=== PATIENT | female | born 1975 | race Caucasian/White ===

== ENCOUNTER 2017-05-09 11:57 | Emergency (ER) | payer OTHER ==
[~2017-05-09] VITALS: Ht 162.6 cm; Wt 73.0 kg
[~2017-05-09 11:57] MED LIST: ATV/1 PO; CARI350T28 PO; CETI10TA84 PO; CHN/1 PO; CYM/30 PO; FLUT0.15 NAE; FLUT1INH3 INH; FRCT/ PO; Gabapentin PO; MONT1TAB3 PO; MULT-506 PO; ONDA4TAB46 PO; PRLSR20 PO; QUET200T2 PO; ROPI1TAB PO; SUMA50TA15 PO; TRAZ100T29 PO; VNTHFA/IN INH; oxycodone PO
[2017-05-09 12:07] VITALS: TEMP 36.8; Ht 162.6 cm; Wt 73.0 kg
[2017-05-09] MEDS ORDERED: OXYC-164 PO (12:20)
[2017-05-09] MEDS ORDERED: NRN600 PO (12:20)
[2017-05-09] MEDS ORDERED: KETOROLAC TROMETHAMINE 60 MG/2 ML VIAL IM STA (12:36)
--- NOTE | 2017-05-09 13:43 | DIAGNOSTIC IMAGING REPORT ---
LUMBAR SPINE 5 VIEWS CLINICAL HISTORY: Fall. Low back pain. FINDINGS: 5 views of the lumbar spine are obtained. No prior studies are available for comparison at the time of dictation. The skeletal structures are well mineralized. There is no radiographic evidence of fracture or malalignment. Vertebral body height and alignment are maintained. There is straightening of the lumbar lordosis with reversal centered at L3. Small anterior osteophytes are seen throughout. The transverse and spinous processes are intact. There is no evidence of spondylolysis. The intervertebral disc spaces are well-maintained. The visualized bony pelvis appears intact. There is a nonobstructed abdominal bowel gas pattern. There is mild but age advanced atherosclerotic calcification of the abdominal aorta. IMPRESSION: No acute bony abnormality is seen involving the lumbosacral spine. Electronically signed by: Jorge Alberto Arias M.D. 05/09/2017 1:41 PM Dictated Date/Time: 05/09/2017 1:40 PM
[2017-05-09] MEDS ORDERED: OXYCODONE HCL IR 5 MG TAB (IMMEDIATE RELEASE) PO STA (14:27)
--- NOTE | 2017-05-09 14:28 | EMERGENCY ROOM VISIT NOTE ---
ED Visit Note First contact with patient: 12:26 CHIEF COMPLAINT: Low back injury this morning HISTORY OF PRESENT ILLNESS: Patient is a 42-year-old white female who presents the emergency department for evaluation of left-sided low back pain after she slipped down a roughly 5 wooden steps, falling and striking her left low back. She did not strike her head or lose consciousness. She complains of pain in the left low back. It is worse with any attempts at movement. It does not radiate to the buttocks or legs. No numbness, tickling or weakness into the lower extremities or bowel or bladder incontinence. She denies any rib pain breath. She has a history of chronic neck and back pain. She is on narcotics chronically. She did take Tylenol and oxycodone 10 mg orally today. She tried to go to work, but could not tolerate the discomfort. She rates her back pain a 10/10. REVIEW OF SYSTEMS: Review of systems as per HPI. All other systems reviewed were negative. At least 6 systems reviewed. PMH: Electronic medical records are reviewed and summarized as above/below. See Problem List. SOCIAL HISTORY: Patient lives at home. Employed as an aide at a personal shelter. PHYSICAL EXAM: Vital Signs: Reviewed Nurse's notes. CONSTITUTIONAL: Patient is a tearful, uncomfortable-appearing 42-year-old white female who is awake and alert and laying on the gurney in moderate distress due to her complaint. There is significant discomfort with position changes. CARDIOVASCULAR: Regular rate and rhythm. RESPIRATORY: Breath sounds equal and clear to auscultation without wheezes, rales, or rhonchi heard. Full and equal chest expansion without accessory muscle use or retractions. ABDOMEN: Bowel sounds are present. Abdomen is soft, nontender and nondistended. INTEGUMENTARY: No lesions or rash, normal skin turgor. LYMPH: No lymphadenopathy. SPINE: Examination of the patient's back notes some superficial abrasion in the left low back region. No ecchymosis or significant soft tissue swelling. No erythema, increased warmth or induration. Patient has midline discomfort to palpation over the low lumbar spine, primarily on the left, extending into the left paraspinous musculature. There is no pain over the SI joint or the sciatic notch. She has increased pain with range of motion including rotation and flexion. EXTREMITIES: Leg lengths are symmetrical. Negative logroll bilaterally. Normal strength including dorsi-flexion and plantar flexion of the great toes and ankles and flexion and extension of the knees and flexion of the hips. Negative bilateral straight leg raise testing. Lower extremity DTRs are equal and symmetrical bilaterally. Distal pulses are easily palpable. Sensation light touch is intact over the lower extremities bilaterally. EMERGENCY DEPARTMENT COURSE: The patient was seen and assessed as above. Her old records were reviewed. She was medicated with Toradol 60 mg IM. Lumbar spine x-rays were obtained. There is no evidence for acute fracture or bony abnormality. The patient was given oxycodone 10 mg orally prior to discharge. 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 Differential diagnoses entertained included compression fracture, transverse process fracture, lumbar contusion, coccygeal fracture versus contusion, muscle strain, among others. The patient was ambulatory out of the emergency department. She rated her pain an 8/10 at discharge. Medication reconciliation: I attest that I have personally reviewed the patient' s current medication list. Blood pressure screening : Patient was found to have normal blood pressure on screening and does not require follow-up. Patient was reviewed in the [facility] Prescription Drug Monitoring Program, and she regularly receives controlled substance prescriptions from her primary care provider, she has 53 controlled substance prescriptions in the last 12 months. LUMBAR SPINE 5 VIEWS CLINICAL HISTORY: Fall. Low back pain. FINDINGS: 5 views of the lumbar spine are obtained. No prior studies are available for comparison at the time of dictation. The skeletal structures are well mineralized. There is no radiographic evidence of fracture or malalignment. Vertebral body height and alignment are maintained. There is straightening of the lumbar lordosis with reversal centered at L3. Small anterior osteophytes are seen throughout. The transverse and spinous processes are intact. There is no evidence of spondylolysis. The intervertebral disc spaces are well-maintained. The visualized bony pelvis appears intact. There is a nonobstructed abdominal bowel gas pattern. There is mild but age advanced atherosclerotic calcification of the abdominal aorta. IMPRESSION: No acute bony abnormality is seen involving the lumbosacral spine. Problem List Medical Problems: (1) Anxiety Disorder, Unspecified Status: Chronic (2) Chronic Obstructive Pulmonary Disease, Unspecified Status: Chronic (3) Chronic pain syndrome Status: Chronic (4) Depression Status: Chronic (5) Gastro-Esophageal Reflux Disease Without Esophagitis Status: Chronic (6) Migraine Status: Chronic (7) Restless Legs Syndrome Status: Chronic Surgical Problems: (1) History of appendectomy Status: Resolved Current/Historical Medications Scheduled Carisoprodol (Soma), 350 MG PO TID Duloxetine HCl (Cymbalta), 1 CAP PO DAILY Fluticasone Furoate (Inhalatio (Arnuity Ellipta), 1 PUFF INH DAILY Fluticasone Propionate (Nasal) (Flonase Allergy Relief), 2 SPRAYS ELLY DAILY Gabapentin (Gabapentin), 600 MG PO TID Montelukast Sodium (Singulair), 1 TAB PO DAILY Quetiapine Fumarate Xr (Seroquel Xr), 200 MG PO HS Ropinirole (Requip), 1 MG PO HS Sumatriptan Succinate (Imitrex), 50 MG PO PRN Trazodone Hcl (Trazodone), 100 MG PO HS Varenicline (Chantix), 1 TAB PO BID Scheduled PRN Acetamin/Butalbital/Caffeine (Fioricet), 1 TAB PO Q6H PRN for PRN Albuterol Hfa (Ventolin Hfa), 2-4 PUFFS INH Q6H PRN for PRN Lorazepam (Ativan), 1 MG PO DAILY PRN for prn Oxycodone Hcl (Oxycodone Hcl), 10 MG PO Q6 PRN for Pain Allergies Coded Allergies: Promethazine (Verified Allergy, Unknown, ., 03/15/11) Vital Signs Date Time Temp Pulse Resp B/P (MAP) Pulse Ox O2 Delivery O2 Flow Rate FiO2 05/09/17 14:48 72 14 98/80 95 Room Air 05/09/17 13:39 73 18 121/75 98 Room Air 05/09/17 12:07 36.8 93 18 133/84 97 Room Air Medications Administered Medications (Trade) Dose Ordered Sig/Kelly Route Start Time Stop Time Status Last Admin Dose Admin Ketorolac Tromethamine (Toradol Inj) 60 mg NOW STAT IM 05/09/17 12:36 05/09/17 12:38 DC 05/09/17 12:59 60 MG Oxycodone HCl (Roxicodone Immediate Rel Tab) 10 mg NOW STAT PO 05/09/17 14:27 05/09/17 14:28 DC 05/09/17 14:47 10 MG Departure Information Impression Primary Impression: Lumbar contusion Referrals Tariq Bañuelos D.O. (PCP) Patient Instructions My [facility] [address] Additional Instructions DO NOT drive, drink alcohol, operate machinery, or perform dangerous activities today. You were given medications in the ER that can affect your ability to safely function or operate a vehicle. Continue your pain medications as prescribed. Ibuprofen(Motrin, Advil) may be used for fever or pain. Use 600mg every six hours as needed. Take with food. Avoid using more than 2400mg in a 24 hour period. Do not use 2400mg per day for more than three consecutive days without physician direction. Prolonged inappropriate use can lead to stomach upset or ulcers. This medication can be taken if you need to drive, work, or perform activities which may be dangerous when taking narcotic pain medication. (AND/OR) Acetaminophen(Tylenol) may be used for fever or pain. Use 1000mg every six hours as needed. Avoid using more than 3000mg in a 24 hour period. This medication can be taken if you need to drive, work, or perform activities which may be dangerous when taking narcotic pain medication. Rest and avoid heavy lifting until your symptoms resolve and then gradually return to full activity. A good rule of thumb is if it hurts your back to perform a certain activity, then it should be avoided until you are healthy again. A heating pad, warm compresses, or a hot shower may help with tight muscles and can be done several times a day as needed. Continue current medications. Return to the ER immediately for any numbness, tingling, severe pain, loss of control of your bowels or bladder, inability to walk, or as needed. Follow up with your primary care physician within 3-5 days for a recheck of your current condition.
[2017-05-09 14:48] VITALS: BP 98/80; PULSE 72; O2SAT 95
== END 2017-05-09 14:57 | disposition home or self-care (01) ==
LOC: C.EDB 11:58 → C.EDD 14:57
DX: S30.0XXA Contusion of lower back and pelvis, initial encounter (principal); W10.9XXA Fall (on) (from) unspecified stairs and steps, initial encounter; Y92.89 Other specified places as the place of occurrence of the external cause; F41.9 Anxiety disorder, unspecified; J44.9 Chronic obstructive pulmonary disease, unspecified; G89.4 Chronic pain syndrome; F32.9 Major depressive disorder, single episode, unspecified; K21.9 Gastro-esophageal reflux disease without esophagitis; G43.909 Migraine, unspecified, not intractable, without status migrainosus; G25.81 Restless legs syndrome; Z79.899 Other long term (current) drug therapy

== ENCOUNTER 2020-10-21 18:03 | Observation (INO) ==
[2020-10-21] MEDS ORDERED: diphenhydrAMINE 50 MG/ML VIAL IV STA (18:26)
[2020-10-21] MEDS ORDERED: SODIUM CHLORIDE 0.9% 1000ML 1,000 ML IV STA (18:26)
[2020-10-21] MEDS ORDERED: LORazepam 0.5 MG/1 ML VIAL IV STA (18:26)
[2020-10-21] MEDS ORDERED: MoRPHine SULFATE 4 MG/ML 1 ML CARP\\VIAL IV STA (18:26)
[2020-10-21] MEDS ORDERED: ONDANSETRON INJ 2 MG/ML 2 ML VIAL IV STA (18:26)
[2020-10-21] MEDS ORDERED: FAMOTIDINE 20MG/5ML IV PUSH IV STA (18:27)
--- NOTE | 2020-10-21 18:42 | Emergency Department Note ---
Impression & Plan Epigastric abdominal pain, Vomiting, Esophagitis, Failure of outpatient treatment ED Provider Note NAME: JOHN PAUL SHANKS AGE: 45 SEX: F : 1975 ARRIVES VIA: Walk-In INFORMANT: [Patient] ED PROVIDER(S): [Jorge Alberto López MD] CHIEF COMPLAINT: Vomiting HISTORY OF PRESENT ILLNESS: The patient is a 45-year-old female presents with 3 days of epigastric abdominal pain and vomiting. She was seen here yesterday in the ED. CT scan of the abdomen showed distal esophageal inflammation. There was no bowel obstruction or other acute surgical pathology. She presents back today with persistent epigastric abdominal pain that is severe. Its constant. She is vomiting and cannot keep food or fluids down. There has been no diarrhea, no fever, no cough or congestion or shortness of breath. She states this has never happened to her before. She does still have her gallbladder but was told yesterday that the gallbladder appeared normal on CT. REVIEW OF SYSTEMS: See HPI for pertinent positives and negatives. A total of ten systems were r eviewed and were otherwise negative. PMHx/PSHx: See Below SOCIAL HISTORY: See Below. PHYSICAL EXAM: GENERAL: Patient is in moderate distress from pain and vomiting. HEENT: No acute trauma, normocephalic atraumatic, mucous membranes moist, no nasal congestion, no scleral icterus. NECK: No stridor, no adenopathy, no meningismus, trachea is midline. LUNGS: Clear to auscultation bilaterally, no wheeze, no rhonchi, breath sounds equal. HEART: Without murmurs gallops or rubs, regular rate and rhythm. ABDOMEN: Soft, moderately tender in the epigastrium, bowel sounds positive, no hernias, no peritonitis. EXTREMITIES: No cyanosis or edema, full range of motion of all the joints without pain or difficulty, no signs for acute trauma. NEUROLOGIC: Oriented x 3, no acute motor or sensory deficits, no focal weakness. SKIN: No rash, no jaundice, no diaphoresis. DIFFERENTIAL DIAGNOSIS: Appendicitis, ovarian cyst, ovarian torsion, ectopic , TOA, PID, infections, diverticulitis, UTI, obstruction, mesenteric ischemia, aortic pathology, inflammatory bowel disease, renal colic, PUD, pancreatitis, biliary pathology, hernia, volvulus, constipation, as well as other pathologies. EMERGENCY DEPARTMENT COURSE/PROCEDURES: ECG: Indication was abdominal pain. The ECG shows a normal sinus rhythm with a rate of 72. There is no ST elevation, no PVCs. The QTc is 477. Continuous Cardiac Monitoring: An order was placed for continuous cardiac monitoring. The monitor shows a rate of 90 with normal sinus rhythm. MEDICAL DECISION MAKING: There is no leukocytosis or concerning anemia. There is a normal platelet count. No significant electrolyte abnormality or kidney failure. No concerning liver enzyme elevation. No pancreatitis. ECG shows a sinus rhythm, no acute ischemia. Cardiac enzyme testing x1 is not consistent with acute cardiac injury. testing was negative. Urinalysis did not show infection. Urine tox was positive for opiates as well as barbiturates and ecstasy. Covid testing was negative. Chest x-ray showed some parenchymal congestion I think secondary to a poor inspiration, no obvious pneumonia. There was no free air. The patient was given IV saline and IV lactated Ringer's. She was given IV Zofran, IV morphine, IV Ativan, IV Pepcid, IV Benadryl. Patient does seem to feel slightly improved. The patient requires a hospital stay. She has had persistent nausea and vomiting despite treatment here in the ED yesterday. She has esophagitis based on the CT from yesterday. She is not safe for discharge home. I did speak with case management, I discussed all results with the patient. The on-call hospitalist was consulted. Patient will require a GI consult while in the hospital, she may require an endoscopy. Past Med/Surg History Medical History Anxiety disorder, unspecified Chronic obstructive pulmonary disease, unspecified Chronic pain syndrome Depression Gastro-esophageal reflux disease without esophagitis Hx of migraines Family History (Updated 10/21/20 @ 21:26 by FIGUEROA De Luna) Other COPD (chronic obstructive pulmonary disease) Depression Diabetes Dyslipidemia Social History Smoking Status: Former smoker Tobacco Type: Cigarettes Smoking End Date: 2017; Hx Alcohol Use: No Hx Substance Use: No Preferred Language: Bruneian Communication Ability: Effective Beliefs That Will Affect Care: None Feels Safe at Home: Yes Safety Concerns: Feels Safe At This Time Allergies Allergies Allergy/AdvReac Type Severity Reaction Status Date / Time Sulfa (Sulfonamide Allergy Intermediate Hives Verified 10/21/20 18:44 Antibiotics) promethazine Allergy Unknown Unknown Verified 10/21/20 18:44 Home Meds Home Medications Medication Instructions Recorded Confirmed albuterol sulfate 2 puff INHALATION QID PRN 10/20/20 10/21/20 albuterol sulfate 2.5 mg INHALATION DIRECTED PRN 10/20/20 10/21/20 amitriptyline 50 mg PO HS 10/20/20 10/21/20 betamethasone, augmented 1 applic TOPICAL BID PRN 10/20/20 10/21/20 carisoprodol 350 mg PO TID PRN 10/20/20 10/21/20 cetirizine [Zyrtec] 10 mg PO DAILY 10/20/20 10/21/20 fluticasone furoate [Arnuity 1 inh INHALATION DAILY 10/20/20 10/21/20 Ellipta] fluticasone propionate [Flonase] 2 spray INTRANASAL DAILY PRN 10/20/20 10/21/20 gabapentin 600 mg PO TID 10/20/20 10/21/20 lorazepam 1 mg PO Q8 PRN 10/20/20 10/21/20 montelukast 10 mg PO HS 10/20/20 10/21/20 omeprazole 40 mg PO DAILY 10/20/20 10/21/20 oxycodone 10 mg PO QID PRN 10/20/20 10/21/20 promethazine 25 mg PO Q6H PRN 10/20/20 10/21/20 quetiapine [Seroquel] 200 mg PO HS 10/20/20 10/21/20 ropinirole 1 mg PO HS 10/20/20 10/21/20 trazodone 150 mg PO HS 10/20/20 10/21/20 [id number] 1 tab PO DAILY PRN 10/21/20 10/21/20 Previous Rx's Medication Instructions Recorded ondansetron 4 mg PO Q6H PRN #20 tab 10/20/20 Results & Data (ED) Vital Signs Vital Signs - 24 hr 10/21/20 18:08 10/21/20 18:36 10/21/20 18:52 Temperature 36.6 C Temperature Source Temporal Artery Scan Pulse Rate 84 73 Pulse Rate from SpO2 Sensor 64 Respiratory Rate 20 Respiratory Effort / Characteristics Non-Labored Respiratory Depth Normal Blood Pressure 136/67 Blood Pressure Mean 90 Pulse Oximetry 98 98 Oxygen Delivery Method Room Air Room Air Sepsis Recent Fever Within 48 Hours No Sepsis New/Unexplained Change in Mental Status N/A Sepsis Action Taken by Nursing No Action Required 10/21/20 19:00 10/21/20 19:02 10/21/20 19:08 Temperature Temperature Source Pulse Rate 72 90 Pulse Rate from SpO2 Sensor 76 71 Respiratory Rate 17 20 Respiratory Effort / Characteristics Respiratory Depth Blood Pressure 118/72 Blood Pressure Mean 87 Pulse Oximetry 94 94 98 Oxygen Delivery Method Room Air Room Air Room Air Sepsis Recent Fever Within 48 Hours Sepsis New/Unexplained Change in Mental Status Sepsis Action Taken by Nursing 10/21/20 19:10 10/21/20 19:20 10/21/20 19:30 Temperature Temperature Source Pulse Rate 73 75 72 Pulse Rate from SpO2 Sensor 73 74 72 Respiratory Rate 18 14 17 Respiratory Effort / Characteristics Respiratory Depth Blood Pressure 121/70 Blood Pressure Mean 87 Pulse Oximetry 93 97 94 Oxygen Delivery Method Sepsis Recent Fever Within 48 Hours Sepsis New/Unexplained Change in Mental Status Sepsis Action Taken by Nursing 10/21/20 19:31 10/21/20 19:40 10/21/20 19:50 Temperature Temperature Source Pulse Rate 71 Pulse Rate from SpO2 Sensor 71 72 67 Respiratory Rate 14 Respiratory Effort / Characteristics Respiratory Depth Blood Pressure Blood Pressure Mean Pulse Oximetry 94 95 95 Oxygen Delivery Method Sepsis Recent Fever Within 48 Hours Sepsis New/Unexplained Change in Mental Status Sepsis Action Taken by Nursing 10/21/20 20:00 10/21/20 20:01 10/21/20 20:10 Temperature Temperature Source Pulse Rate 68 65 Pulse Rate from SpO2 Sensor 68 67 65 Respiratory Rate Respiratory Effort / Characteristics Respiratory Depth Blood Pressure 130/81 Blood Pressure Mean 97 Pulse Oximetry 95 95 95 Oxygen Delivery Method Sepsis Recent Fever Within 48 Hours Sepsis New/Unexplained Change in Mental Status Sepsis Action Taken by Nursing 10/21/20 20:20 10/21/20 20:34 10/21/20 20:40 Temperature Temperature Source Pulse Rate 64 Pulse Rate from SpO2 Sensor 62 71 65 Respiratory Rate Respiratory Effort / Characteristics Respiratory Depth Blood Pressure Blood Pressure Mean Pulse Oximetry 95 97 98 Oxygen Delivery Method Sepsis Recent Fever Within 48 Hours Sepsis New/Unexplained Change in Mental Status Sepsis Action Taken by Nursing 10/21/20 20:50 10/21/20 21:00 10/21/20 21:01 Temperature Temperature Source Pulse Rate 68 65 Pulse Rate from SpO2 Sensor 67 Respiratory Rate 18 13 Respiratory Effort / Characteristics Respiratory Depth Blood Pressure 120/83 Blood Pressure Mean 95 Pulse Oximetry 98 Oxygen Delivery Method Sepsis Recent Fever Within 48 Hours Sepsis New/Unexplained Change in Mental Status Sepsis Action Taken by Detention Medications Current Medication List: was personally reviewed by me Laboratory Data Attestation: I reviewed the patient's lab results. Result diagrams: 10/21/20 19:12 10/21/20 19:12 Lab Results 10/21/20 10/21/20 10/21/20 Range/Units 19:12 19:12 19:12 WBC 8.49 (4.8-10.8) K/uL RBC 4.65 (4.2-5.4) M/uL Hgb 14.0 (12.0-16.0) g/dL Hct 41.3 (37-47) % MCV 88.8 (80-100) fL MCH 30.1 (25-34) pg MCHC 33.9 (32-36) g/dL RDW Std Deviation 41.1 (36.4-46.3) fL RDW Coeff of Milagros 12.8 (11.5-14.5) % Plt Count 258 (130-400) K/uL MPV 10.1 (7.4-10.4) fL Immature Gran % (Auto) 0.2 % Neut % (Auto) 65.1 % Lymph % (Auto) 28.2 % Grimes % (Auto) 5.3 % Eos % (Auto) 1.1 % Baso % (Auto) 0.1 % Neut # (Auto) 5.53 (1.4-6.5) K/uL Lymph # (Auto) 2.39 (1.2-3.4) K/uL Grimes # (Auto) 0.45 (0.11-0.59) K/uL Eos # (Auto) 0.09 (0-0.5) K/uL Baso # (Auto) 0.01 (0-0.2) K/uL Immature Gran # (Auto) 0.02 (0.00-0.02) K/uL Sodium 139 (136-145) mmol/L Potassium 3.7 (3.5-5.1) mmol/L Chloride 109 H (98-107) mmol/L Carbon Dioxide 26 (21-32) mmol/L Anion Gap 5.0 (3-11) BUN 6 L (7-18) mg/dl Creatinine 0.74 (0.6-1.2) mg/dl Est Cr Clr Drug Dosing Not Reportable Est GFR ( Amer) 111.8 ml/min Est GFR (Non-Af Amer) 96.5 ml/min BUN/Creatinine Ratio 8.2 L (10-20) Glucose 134 H (70-99) mg/dl Calcium 8.3 L D (8.5-10.1) mg/dl Total Bilirubin 0.3 (0.2-1) mg/dl AST 13 L (15-37) U/L ALT 25 (12-78) U/L Alkaline Phosphatase 42 L (45-117) U/L Troponin I < 0.015 (0-0.045) ng/ml Total Protein 5.9 L (6.4-8.2) gm/dl Albumin 3.1 L (3.4-5.0) gm/dl Globulin 2.8 (2.5-4.0) gm/dl Albumin/Globulin Ratio 1.1 (0.9-2) Lipase 72 L (73-393) U/L HCG, Qual Negative (Negative) Administered Medications Amitriptyline HCl (Amitriptyline Hcl 50 Mg Tab) 50 mg PO HS KAYLA Stop: 11/20/20 22:15 Last Admin: 10/21/20 23:04 Dose: 50 mg Documented by: [id number] Enoxaparin Sodium (Enoxaparin Inj 40 Mg/0.4 Ml Syr) 40 mg SQ HS KAYLA Stop: 11/20/20 22:44 Last Admin: 10/21/20 23:21 Dose: Not Given Documented by: [id number] Gabapentin (Gabapentin 600 Mg Tab) 600 mg PO TID KAYLA Stop: 11/20/20 22:15 Last Admin: 10/21/20 23:06 Dose: 600 mg Documented by: [id number] Sodium Chloride (1/2 Nss) 1,000 mls @ 80 mls/hr IV .[id number] KAYLA Stop: 11/20/20 22:15 Last Admin: 10/21/20 23:08 Dose: 80 mls/hr Documented by: [id number] Montelukast Sodium (Montelukast Sodium 10 Mg Tablet) 10 mg PO KAYLA Stop: 11/20/20 22:15 Last Admin: 10/21/20 23:06 Dose: 10 mg Documented by: [id number] Oxycodone HCl (Oxycodone Hcl Ir 5 Mg Tab (Immediate Release)) 10 mg PO BID PRN PRN Reason: Severe Pain Stop: 11/04/20 23:15 Last Admin: 10/21/20 23:27 Dose: 10 mg Documented by: [id number] Quetiapine Fumarate (Quetiapine Fumarate 200 Mg Tab) 200 mg PO KAYLA Stop: 11/20/20 22:15 Last Admin: 10/21/20 23:05 Dose: 200 mg Documented by: [id number] Ropinirole HCl (Ropinirole Hcl 1 Mg Tablet) 1 mg PO [facility] Stop: 11/20/20 22:15 Last Admin: 10/21/20 23:06 Dose: 1 mg Documented by: [id number] Trazodone HCl (Trazodone Hcl 50 Mg Tab) 150 mg PO [facility] Stop: 11/20/20 22:15 Last Admin: 10/21/20 23:04 Dose: 150 mg Documented by: [id number] Discontinued Medications Diphenhydramine HCl (Diphenhydramine 50 Mg/Ml Vial) 25 mg IV NOW STA Stop: 10/21/20 18:27 Last Admin: 10/21/20 18:53 Dose: 25 mg Documented by: [id number] Famotidine (Famotidine 20mg/5ml Iv Push) 20 mg IV ONE STA Stop: 10/21/20 18:28 Last Admin: 10/21/20 18:55 Dose: 20 mg Documented by: [id number] Sodium Chloride (Nss 1000ml) 1,000 mls @ 999 mls/hr IV .Q1H1M STA Stop: 10/21/20 19:26 Last Infusion: 10/21/20 19:44 Dose: 0 mls/hr Documented by: [id number] Admin: 10/21/20 18:54 Dose: 999 mls/hr Documented by: [id number] Lorazepam (Ativan) 0.5 mg in 1 mls @ 1 mls/min IV NOW STA Stop: 10/21/20 18:27 Last Admin: 10/21/20 18:54 Dose: 1 mls/min Documented by: [id number] Lactated Ringer's (Lr) 1,000 mls @ 999 mls/hr IV .Q1H1M STA Stop: 10/21/20 20:27 Last Infusion: 10/21/20 20:45 Dose: 0 mls/hr Documented by: [id number] Admin: 10/21/20 19:44 Dose: 999 mls/hr Documented by: [id number] Morphine Sulfate (Morphine Sulfate 4 Mg/Ml 1 Ml Carp\Vial) 4 mg IV NOW STA Stop: 10/21/20 18:27 Last Admin: 10/21/20 18:53 Dose: 4 mg Documented by: [id number] Ondansetron HCl (Ondansetron Inj 2 Mg/Ml 2 Ml Vial) 4 mg IV NOW STA Stop: 10/21/20 18:27 Last Admin: 10/21/20 18:55 Dose: 4 mg Documented by: [id number] Imaging Data Radiologist's Impression: Chest X-Ray 10/21/20 18:26 SINGLE VIEW CHEST CLINICAL HISTORY: Generalized abdominal pain. FINDINGS: An AP, portable, upright chest radiograph is compared to study dated 10/20/2020. The cardiomediastinal silhouette is unremarkable. There is developing airspace consolidation at both lung bases. No large pleural effusion or pneumothorax is seen. The bony thorax is grossly intact. IMPRESSION: There is developing airspace consolidation at both lung bases. C orrelate clinically for evidence of pneumonia/aspiration pneumonitis. ACT 112: Negative or not required by law. Electronically signed by: Jorge Alberto Arias M.D. 10/21/2020 8:07 PM Discharge Plan Visit Data Chief Complaint: Vomiting Stated Complaint: VOMITING-CHEST PAIN-WAS HERE YESTERDAY ED Provider: Jorge Alberto López Discharge Problem: Epigastric abdominal pain, Vomiting, Esophagitis, Failure of outpatient treatment Patient Disposition: Admitted As Inpatient Condition: Fair Discharge Instructions Interventions: ED Discharge Assessment Last Done: 10/21/20 21:53 Discharge Problem: Vomiting Qualifiers: Vomiting type: unspecified Vomiting Intractability: intractable Nausea presence: with nausea Qualified Code(s): R11.2 - Nausea with vomiting, unspecified
[2020-10-21] MEDS ORDERED: LACTATED RINGER'S 1,000 ML IV STA (19:27)
[2020-10-21 19:28] LABS: Basophils # (auto) 0.01 K/uL (0-0.2); Basophils % (auto) 0.1 %; Eosinophils # (auto) 0.09 K/uL (0-0.5); Eosinophils % (auto) 1.1 %; Hematocrit (blood only) 41.3 % (37-47); Immature Granulocytes # (auto) 0.02 K/uL (0.00-0.02); Immature Granulocytes % (auto) 0.2 %; Lymphocytes # (auto) 2.39 K/uL (1.2-3.4); Lymphocytes % (auto) 28.2 %; Mean Corpuscular Hemoglobin 30.1 pg (25-34); Mean Corpuscular Hgb Conc 33.9 g/dL (32-36); Mean Corpuscular Volume 88.8 fL (80-100); Mean Platelet Volume 10.1 fL (7.4-10.4); Monocytes # (auto) 0.45 K/uL (0.11-0.59); Monocytes % (auto) 5.3 %; Neutrophils # (auto) 5.53 K/uL (1.4-6.5); Neutrophils % (auto) 65.1 %; Platelet Count 258 K/uL (130-400); RDW Coefficient of Variation 12.8 % (11.5-14.5); RDW Standard Deviation 41.1 fL (36.4-46.3); Red Blood Count 4.65 M/uL (4.2-5.4); White Blood Count 8.49 K/uL (4.8-10.8)
[2020-10-21 19:59] LABS: Alanine Aminotransferase 25 U/L (12-78); Albumin Globulin Ratio 1.1 (0.9-2); Albumin Level 3.1 gm/dl (3.4-5.0); Alkaline Phosphatase 42 U/L (45-117); Aspartate Aminotransferase 13 U/L (15-37); BUN Creatinine Ratio 8.2 (10-20); Bilirubin,Total 0.3 mg/dl (0.2-1); Blood Urea Nitrogen 6 mg/dl (7-18); Calcium 8.3 mg/dl (8.5-10.1); Carbon Dioxide 26 mmol/L (21-32); Chloride 109 mmol/L (98-107); Est GFR (African American) 111.8 ml/min; Est GFR (Non-African American) 96.5 ml/min; Globulin 2.8 gm/dl (2.5-4.0); Glucose 134 mg/dl (70-99); Lipase 72 U/L (73-393); Potassium 3.7 mmol/L (3.5-5.1); Sodium 139 mmol/L (136-145); Total Protein 5.9 gm/dl (6.4-8.2); Troponin I < 0.015 ng/ml (0-0.045)
--- NOTE | 2020-10-21 20:08 | XRay Report ---
SINGLE VIEW CHEST CLINICAL HISTORY: Generalized abdominal pain. FINDINGS: An AP, portable, upright chest radiograph is compared to study dated 10/20/2020. The cardiome diastinal silhouette is unremarkable. There is developing airspace consolidation at both lung bases. No large pleural effusion or pneumothorax is seen. The bony thorax is grossly intact. IMPRESSION: There is developing airspace consolidation at both lung bases. Correlate clinically for e vidence of pneumonia/aspiration pneumonitis. ACT 112: Negative or not required by law. Electronically signed by: Jorge Alberto Arias M.D. 10/21/2020 8:07 PM
[2020-10-21 20:35] LABS: Pregnancy Test, Serum Negative (Negative)
[2020-10-21 21:45] LABS: Appearance Urine Clear (Clear); Bilirubin Urine Negative (Negative); Blood Urine Negative (Negative); Color Urine Yellow; Glucose Urine UA Negative (Negative); Ketones Urine Negative (Negative); Leukocyte Esterase Urine Negative (Negative); Nitrite Urine Negative (Negative); Protein Urine Negative (Negative); Specific Gravity Urine 1.009 (1.000-1.030); Urobilinogen Urine Negative (Negative)
--- NOTE | 2020-10-21 21:47 | History & Physical Report ---
Date of Service October 21, 2020 Assessment & Plan (1) GERD with esophagitis: As per CT scan above- Patient reports her GI appointment is at the end of November - Continue omeprazole 40 daily- If symptoms remain un-tolerable increase to BID until GI evaluation - Carafate 1GM QID - Famotidine 20mg IV - NPO for tonight - 0.45% saline overnight (2) Vomiting: Currently controlled - Zofran 4mg q6 prn - Reglan 5mg q8 PRN - PPI/H2 as above - Electrolytes normal - Appears euvolemic - Urine tox screen pending- if (+) consider capsaicin cream - Not related to migraine at this time - Pneumonitis on CXR- no clinical indication for treatment at this time (3) Abdominal pain, epigastric: Cramping burning pain with GERD and frequent wretching - CXR negative for free air or air outside esophagus/trachea (4) Depression: Continue her outpatient medications (5) Hx of migraines: Continue abortive medications as needed (6) Chronic pain syndrome: Continue outpatient medications - Hold oxy - can give if needed - multimodal agents- History of Present Illness Primary Care Provider: Tariq Bañuelos 45 YOF with past medical history of asthma, migraines, depression, GERD, anxiety, chronic pain. Patient comes in today after being seen in the EMD x2 nights for epigastric sharp, burning pain and bilious vomiting. Patient had a CT scan performed yesterday that revealed thickened esophagus was treated with PPI and follow up with GI for evaluation with a EGD. Patient went home yesterday had bbq chicken and vegetables for dinner and had return of her symptoms. She tried to eat a banana this morning that also she states that she threw up and continues with her pain. Recently she had her omeprazole increased to 40 mg daily. For her nausea in the EMD she was given Zofran, Benadryl, and Ativan. She states her vomiting has subsided but remains with burning chest discomfort and burping. Patient will be admitted for observation overnight and symptom management. Patient denies any recent illicit drug use. She appears Euvolemic on exam, vitals are stable, and her laboratory review is normal to include CBC, lipase, biliary labs, and electrolytes. She received 2L of isoto lizabeth crystalloid in the EMD. Will cover overnight with hypotonic saline. For her migraines her abortive medications usually work, however she states earlier this week she went to her PCP and was treated with Toradol and Phenergan. She states she had an issue with Phenergan when she was younger, but has had it since then without any side effects. Allergies Allergy/AdvReac Type Severity Reaction Status Date / Time Sulfa (Sulfonamide Allergy Intermediate Hives Verified 10/21/20 18:44 Antibiotics) promethazine Allergy Unknown Unknown Verified 10/21/20 18:44 Home Medications Medication Instructions Recorded Confirmed Type Arnuity Ellipta 1 inh INHALATION DAILY 10/20/20 10/21/20 History albuterol sulfate 2 puff INHALATION QID PRN 10/20/20 10/21/20 History albuterol sulfate 2.5 mg INHALATION DIRECTED PRN 10/20/20 10/21/20 History amitriptyline 50 mg PO HS 10/20/20 10/21/20 History betamethasone, augmented 1 applic TOPICAL BID PRN 10/20/20 10/21/20 History carisoprodol 350 mg PO TID PRN 10/20/20 10/21/20 History cetirizine [Zyrtec] 10 mg PO DAILY 10/20/20 10/21/20 History fluticasone propionate 2 spray INTRANASAL DAILY PRN 10/20/20 10/21/20 History gabapentin 600 mg PO TID 10/20/20 10/21/20 History lorazepam 1 mg PO Q8 PRN 10/20/20 10/21/20 History montelukast 10 mg PO HS 10/20/20 10/21/20 History ondansetron 4 mg PO Q6H PRN #20 tab 10/20/20 10/21/20 Rx oxycodone 10 mg PO QID PRN 10/20/20 10/21/20 History promethazine 25 mg PO Q6H PRN 10/20/20 10/21/20 History quetiapine [Seroquel] 200 mg PO HS 10/20/20 10/21/20 History ropinirole 1 mg PO HS 10/20/20 10/21/20 History trazodone 150 mg PO HS 10/20/20 10/21/20 History uzbwkliovd-jlbvqyuizjykw-fgnp 1 tab PO DAILY PRN 10/21/20 10/21/20 History omeprazole 40 mg PO BID #60 cap 10/23/20 Rx Past Med/Surg History Medical History Anxiety disorder, unspecified Chronic obstructive pulmonary disease, unspecified Chronic pain syndrome Depression Gastro-esophageal reflux disease without esophagitis Hx of migraines Family History (Updated 10/21/20 @ 21:26 by FIGUEROA De Luna) Other COPD (chronic obstructive pulmonary disease) Depression Diabetes Dyslipidemia Social History Smoking Status: Former smoker Tobacco Type: Cigarettes Smoking End Date: 2017; Hx Alcohol Use: No Hx Substance Use: No Preferred Language: Maori Communication Ability: Effective Beliefs That Will Affect Care: None How many Children do You have: 3 Feels Safe at Home: Yes Safety Concerns: Feels Safe At This Time Assistive Devices: None Review of Systems Review of Systems: REVIEW OF SYSTEMS: Constitutional: No fever, sweats or chills Eyes: No diplopia, no worsening or blurred vision ENT (+_ throat irritation, normal hearing, no trouble swallowing Respiratory: No cough, sputum, dyspnea at rest or on exertion Cardiovascular: (+) epigastric chest pain, NO tightness or palpitations Abdomen: (+) pain, nausea, vomiting, NO diarrhea or constipation Musculoskeletal: No joint pain, calf pain, swelling Neurologic: No weakness, numbness/tingling, or balance problems Psychiatric: No anxiety or depression Skin: No rash or itch Physical Exam Physical Exam: PHYSICAL EXAM: General: awake, alert, no apparent distress Head: Normocephalic, atraumatic ENT: PERRL, EOMI, no pharyngeal exudate, mucous membranes moist, no enlarged cervical or clavicular lymphonodes or subcuatneous crepitus felt Neuro: AAO x 3, speech clear and appropriate, strength intact bilaterally 5/5, sensation intact and equal all extremities and dermatomes, no pronator drift Chest: equal rise and fall of the chest, no accessory muscle use, no heaves or thrills, Clear to auscultation, on room air, Cardiac: Regular rate and rhythm, telemetry reviewed, skin warm dry, cap refill <3 seconds, peripheral pulses +2 no JVD, no murmur, no edema GI: NABS x 4 quadrants, soft, nontender to palpation, tympanic on percussion, no rebound, guarding or tenderness : Spontaneously voiding, no pain, no CVA tenderness, Extremities: Normal inspection, no peripheral edema or erythema, calfs nontender to palpation Psych: Normal mood and affect Skin: no rash or erythema Results & Data Results & Data ([facility]) Vital Signs (Past 12 Hours) Vital Signs Temp Pulse Resp BP Pulse Ox 10/21/20 20:20 64 95 10/21/20 20:10 65 95 10/21/20 20:01 68 95 10/21/20 20:00 130/81 95 10/21/20 19:50 95 10/21/20 19:40 95 10/21/20 19:31 71 14 94 10/21/20 19:30 72 17 121/70 94 10/21/20 19:20 75 14 97 10/21/20 19:10 73 18 93 10/21/20 19:08 90 20 98 10/21/20 19:02 72 17 118/72 94 10/21/20 19:00 94 10/21/20 18:52 98 10/21/20 18:36 73 10/21/20 18:08 36.6 C 84 20 136/67 98 Laboratory Results Abnormal Labs 10/21/20 19:12 Chloride 109 H BUN 6 L BUN/Creatinine Ratio 8.2 L Glucose 134 H Calcium 8.3 L D AST 13 L Alkaline Phosphatase 42 L Total Protein 5.9 L Albumin 3.1 L Lipase 72 L Diagnostic Findings Chest X-Ray 10/21/20 18:26 SINGLE VIEW CHEST CLINICAL HISTORY: Generalized abdominal pain. FINDINGS: An AP, portable, upright chest radiograph is compared to study dated 10/20/2020. The cardiomediastinal silhouette is unremarkable. There is developing airspace consolidation at both lung bases. No large pleural effusion or pneumothorax is seen. The bony thorax is grossly intact. IMPRESSION: There is developing airspace consolidation at both lung bases. Correlate clinically for evidence of pneumonia/aspiration pneumonitis. ACT 112: Negative or not required by law. Electronically signed by: Jorge Alberto Arias M.D. 10/21/2020 8:[address] SCAN OF THE ABDOMEN AND PELVIS WITH IV CONTRAST- [id number] CLINICAL HISTORY: Vomiting. COMPARISON STUDY: Lumbar spine radiographs dated 05/09/2017. TECHNIQUE: Following the IV administration of 94 cc of Optiray 320, CT scan of the abdomen and pelvis is performed from the lung bases to the proximal femora. Images are reviewed in the axial, sagittal, and coronal planes. IV contrast was administered without complication. A dose lowering technique was utilized adhering to the principles of ALARA. CT DOSE: 333.93 mGy.cm FINDINGS: Lung bases: The heart is normal in size and without pericardial effusion. The lung bases are clear. Circumferential wall thickening is noted in the distal esophagus. Liver: The contrast-enhanced liver is normal in size, contour, and attenuation. There is no intrahepatic biliary ductal dilatation. The hepatic veins and portal veins are patent. Gallbladder: Unremarkable. Spleen: Normal in size and attenuation. Pancreas: Unremarkable. Adrenal glands: Unremarkable. Kidneys: The contrast enhanced kidneys are normal in size and without hydronephrosis. The kidneys enhance symmetrically. There are numerous bilateral nonobstructing renal calculi which measure up to 6 mm. Abdominal vasculature: The abdominal aorta is normal in course and caliber noting mild to moderate atherosclerotic calcification. Bowel: There is mild colonic diverticulosis without CT evidence of acute diverticulitis. No bowel obstruction is seen. The appendix is not identified and reported surgically absent. Peritoneum: There is no intraperitoneal free air or abdominal ascites. Lymphadenopathy: None. Pelvic viscera: The bladder, uterus, and adnexa are normal as visualized noting bilateral ovarian follicles. A dominant follicle in the right ovary measures up to 2.7 cm. Skeletal structures: No lytic or blastic lesions are seen. IMPRESSION: 1. Circumferential wall thickening is noted in the distal esophagus. Correlate clinically for evidence of esophagitis. This could be further assessed with endoscopy if clinically warranted. 2. There is no bowel obstruction. 3. Bilateral nephrolithiasis. 4. Colonic diverticulosis without CT evidence of acute diverticulitis. 5. Additional findings as above. Medications Administered Discontinued Medications Diphenhydramine HCl (Diphenhydramine 50 Mg/Ml Vial) 25 mg IV NOW STA Stop: 10/21/20 18:27 Last Admin: 10/21/20 18:53 Dose: 25 mg Documented by: [id number] Famotidine (Famotidine 20mg/5ml Iv Push) 20 mg IV ONE STA Stop: 10/21/20 18:28 Last Admin: 10/21/20 18:55 Dose: 20 mg Documented by: [id number] Sodium Chloride (Nss 1000ml) 1,000 mls @ 999 mls/hr IV .Q1H1M STA Stop: 10/21/20 19:26 Last Infusion: 10/21/20 19:44 Dose: 0 mls/hr Documented by: [id number] Admin: 10/21/20 18:54 Dose: 999 mls/hr Documented by: [id number] Lorazepam (Ativan) 0.5 mg in 1 mls @ 1 mls/min IV NOW STA Stop: 10/21/20 18:27 Last Admin: 10/21/20 18:54 Dose: 1 mls/min Documented by: [id number] Lactated Ringer's (Lr) 1,000 mls @ 999 mls/hr IV .Q1H1M STA Stop: 10/21/20 20:27 Last Infusion: 10/21/20 20:45 Dose: 0 mls/hr Documented by: [id number] Admin: 10/21/20 19:44 Dose: 999 mls/hr Documented by: [id number] Morphine Sulfate (Morphine Sulfate 4 Mg/Ml 1 Ml Carp\Vial) 4 mg IV NOW STA Stop: 10/21/20 18:27 Last Admin: 10/21/20 18:53 Dose: 4 mg Documented by: [id number] Ondansetron HCl (Ondansetron Inj 2 Mg/Ml 2 Ml Vial) 4 mg IV NOW STA Stop: 10/21/20 18:27 Last Admin: 10/21/20 18:55 Dose: 4 mg Documented by: [id number] ECG Additional Comments: Normal sinus rhythm Low voltage QRS Cannot rule out Anterior infarct , age undetermined Abnormal ECG When compared with ECG of 20-OCT-2020 14:38, No significant change was found Code Status & VTE Plan Code Status CODE: FULL VTE: SCDs, ambulation, lovenox VTE Prophylaxis Plan VTE Prophylaxis will be ordered: Yes Supervising Physician Co-Signing Physician Notes Attending addendum: I have physically seen this patient, have supervised the MELODIE's activities, and agree with the H&P unless as otherwise noted. Assessment and Plan: GERD with esophagitis- Continue omeprazole 40 mg p.o. daily/pantoprazole 40 mg p.o. daily with dinner change Carafate 1 g p.o. 4 times daily Famotidine 20 mg IV every 12 hours NPO Half-normal saline 100 mils per hour Zofran 4 mg IV every 6 hours as needed Reglan 5 mg IV every 8 hours as needed Zofran does not work Follow CBC with differential and chemistry profile daily Remaining orders and notations as noted PG Care Time/CCT Total # of Minutes Spent Total Time Spent with Patient: Total time spent is greater than 50% in coordination of care (as documented) at patient's floor/unit and/or counseling patient: Coding Level of Care Code 43839 OBS Care - Level 3 Diagnoses GERD with esophagitis K21.00 Esophagitis bleeding: unspecified whether hemorrhage Vomiting R11.2 Nausea presence: with nausea Vomiting Intractability: non-intractable Vomiting type: unspecified Abdominal pain, epigastric R10.13 Depression F32.89 Depression Type: other depression Hx of migraines Z86.69 Chronic pain syndrome G89.4 (1) GERD with esophagitis Esophagitis bleeding: unspecified whether hemorrhage Qualified Code(s): K21.00 - Gastro-esophageal reflux disease with esophagitis, without bleeding (2) Depression Depression Type: other depression Qualified Code(s): F32.89 - Other specified depressive episodes (3) Vomiting Nausea presence: with nausea Vomiting Intractability: non-intractable Vomiting type: unspecified Qualified Code(s): R11.2 - Nausea with vomiting, unspecified
[2020-10-21 22:13] LABS: Amphetamines+Metham, Urine Neg (Neg); Barbiturates, Urine Pos (Neg); Benzodiazepine, Urine Neg (Neg); Cocaine, Urine Neg (Neg); MDMA (Ecstacy), Urine Pos (Neg); Methadone, Urine Neg (Neg); Opiate, Urine Pos (Neg); Phencyclidine, Urine Neg (Neg)
[2020-10-21] MEDS ORDERED: ONDANSETRON INJ 2 MG/ML 2 ML VIAL IV PRN (22:16)
[2020-10-21] MEDS ORDERED: BUTALBITAL/ACETAMIN/CAFFEINE TAB PO PRN (22:16)
[2020-10-21] MEDS ORDERED: ALBUTEROL HFA 8 GM INHALER INH PRN (22:16)
[2020-10-21] MEDS: AMITRIPTYLINE HCL 50 MG TAB PO SCH (23:04)
[2020-10-21] MEDS: traZODone HCL 50 MG TAB PO SCH (23:04)
[2020-10-21] MEDS: QUEtiapine FUMARATE 200 MG TAB PO SCH (23:05)
[2020-10-21] MEDS: rOPINIRole HCL 1 MG TABLET PO SCH (23:06)
[2020-10-21] MEDS: GABAPENTIN 600 MG TAB PO SCH (23:06)
[2020-10-21] MEDS: MONTELUKAST SODIUM 10 MG TABLET PO SCH (23:06)
[2020-10-21] MEDS: SODIUM CHLORIDE 0.45 % 1,000 ML IV SCH (23:08)
[2020-10-21] MEDS ORDERED: oxyCODONE HCL IR 5 MG TAB (IMMEDIATE RELEASE) PO PRN (23:16)
[2020-10-21] MEDS: ENOXAPARIN INJ 40 MG/0.4 ML SYR SQ SCH (23:21)
[2020-10-22 06:16] LABS: Basophils # (auto) 0.01 K/uL (0-0.2); Basophils % (auto) 0.1 %; Eosinophils # (auto) 0.14 K/uL (0-0.5); Hemoglobin 12.4 g/dL (12.0-16.0); Immature Granulocytes # (auto) 0.02 K/uL (0.00-0.02); Immature Granulocytes % (auto) 0.3 %; Lymphocytes # (auto) 2.54 K/uL (1.2-3.4); Lymphocytes % (auto) 36.2 %; Mean Corpuscular Hemoglobin 29.9 pg (25-34); Mean Corpuscular Hgb Conc 32.6 g/dL (32-36); Mean Corpuscular Volume 91.6 fL (80-100); Mean Platelet Volume 10.1 fL (7.4-10.4); Monocytes # (auto) 0.42 K/uL (0.11-0.59); Neutrophils # (auto) 3.89 K/uL (1.4-6.5); Neutrophils % (auto) 55.4 %; Platelet Count 239 K/uL (130-400); RDW Coefficient of Variation 12.9 % (11.5-14.5); RDW Standard Deviation 43.4 fL (36.4-46.3); Red Blood Count 4.15 M/uL (4.2-5.4); White Blood Count 7.02 K/uL (4.8-10.8)
[2020-10-22 06:49] LABS: BUN Creatinine Ratio 9.2 (10-20); Calcium 7.9 mg/dl (8.5-10.1); Creatinine Clr Calc Pharmacy 102.5 ml/min; Est GFR (African American) 120.7 ml/min; Est GFR (Non-African American) 104.2 ml/min; Magnesium 1.8 mg/dl (1.8-2.4); Potassium 3.9 mmol/L (3.5-5.1)
[2020-10-22] MEDS: FLUTICASONE FUROATE 100MCG 14 PUFFS/INHALER INH SCH (08:38)
[2020-10-22] MEDS: FAMOTIDINE 20 MG in SYRINGE 3 ML IV SCH ×2 (08:39→20:02)
[2020-10-22] MEDS: SUCRALFATE 1 GM TAB PO SCH ×2 (08:39→11:47)
[2020-10-22] MEDS: CETIRIZINE HCL 10 MG TABLET PO SCH (08:39)
[2020-10-22] MEDS: GABAPENTIN 600 MG TAB PO SCH ×3 (08:39→20:04)
[2020-10-22] MEDS ORDERED: PANTOprazole 40 MG TAB PO SCH (09:00)
[2020-10-22] MEDS: METOCLOPRAMIDE HCL INJ 5 MG/ML 2 ML VIAL IV PRN (11:47)
[2020-10-22] MEDS: CARISOPRODOL 350 MG TABLET PO PRN ×2 (11:47→22:04)
[2020-10-22] MEDS: SODIUM CHLORIDE 0.45 % 1,000 ML IV SCH ×2 (11:47→22:04)
[2020-10-22] MEDS: oxyCODONE HCL IR 5 MG TAB (IMMEDIATE RELEASE) PO PRN ×2 (12:08→20:02)
--- NOTE | 2020-10-22 12:25 | Hospitalist Progress Note ---
Date of Service October 22, 2020 Assessment & Plan (1) GERD with esophagitis: As per CT scan above- Patient was a no show for GI appointment scheduled with [facility] on 09/22/20. She stated she has another appointment scheduled for November, but it does not look like she has anything scheduled with [facility]. - States she has been taking 800mg of ibuprofen TID for several years for chronic migraines and pain. - N/v improved. Reflux improved. However, symptoms persists. - GI consulted. Plan for EGD tomorrow. - Will increase pantoprazole 40mg to BID. - Carafate discontinued by GI. - Famotidine 20mg IV BID - Patient is NPO. - 0.45% saline IVF. (2) Vomiting: Vomiting controlled, but nausea persists. - Zofran 4mg q6 prn - Reglan 5mg q8 PRN - PPI/H2 as above - Electrolytes normal - Appears euvolemic - Urine tox screen positive for opiates, barbituates, and MDMA. She has been on chronic oxycodone 10mg Q6hrs for quite some time per PDMP. Chronic lorazepam, Fioricet, and Soma as well. She denies the use of Ecstasy. States she did smoke some of her daughter's marijuana prior to admission, but states it was medical marijuana obtained legally. MDMA positive secondary to amitriptyline? - Not related to migraine at this time - Pneumonitis on CXR- no clinical indication for treatment at this time (3) Abdominal pain, epigastric: Cramping burning pain with GERD and frequent wretching - CXR negative for free air or air outside esophagus/trachea - Hx of daily NSAID use for several years. - GI consulted. Plan for EGD tomorrow. (4) Depression: Continue Seroquel and amitriptyline. (5) Hx of migraines: Continue Fioricet PRN. (6) Chronic pain syndrome: Continue outpatient medications - on chronic oxycodone 10mg q6hrs, soma, gabapentin, and amitriptyline. (7) DVT prophylaxis: Lovenox. (8) Type II diabetes mellitus: Patient states she has type II diabetes, and usually takes metformin at home. - States her last HgbA1C was 5.9%. - Hold metformin while inpatient. - BSGs ACHS. Admission and Anticipated Discharge Date Admission Date: October 21, 2020 Supervising Physician Co-Signing Physician Notes PA Supervision Note: I did not personally see or examine the patient today, but I verified all bear points of FIGUEROA Barnett's assessment and plan with the following exceptions/additions: None Subjective 45 yo female admitted for GERD with esophagitis and n/v. Patient reports n/v and reflux improved this AM, but persists. GI has not yet been consulted. Patient reports she has been taking 800mg of ibuprofen TID for several years. She reports severe reflux over the past 4 weeks. Review of Systems Constitutional: no fever and no chills Eyes: no worsening vision Ear, Nose, Mouth, Throat: no dizziness Respiratory: no dyspnea Cardiovascular: no chest pain Gastrointestinal: + heartburn and + nausea; no abdominal pain, no vomiting, no coffee ground emesis, no hematemesis, no diarrhea/loose stools and no melena Genitourinary: no dysuria Psychiatric: no confusion Physical Exam Constitutional: + overweight; no acute distress ENMT: Ears: no hearing impairment Neck: trachea midline, no thyromegaly Respiratory: normal respiratory effort, lungs clear to auscultation Cardiovascular: RRR, no murmur, no edema Gastrointestinal (Abdomen): Inspection/Auscultation: normal bowel sounds Percussion/Palpation: + abdomen tender (epigastric pain with palpation ) and abdomen soft Psychiatric: A+Ox3, euthymic affect Results & Data Results & Data ([facility]) Vital Signs (Past 12 Hours) Vital Signs Temp Pulse Resp BP Pulse Ox 10/22/20 07:30 36.6 C 58 L 18 100/67 98 PG Care Time/CCT Total # of Minutes Spent Total Time Spent with Patient: Total time spent is greater than 50% in coordination of care (as documented) at patient's floor/unit and/or counseling patient: Coding Level of Care Code 31074 Subseq Hosp Care Lvl 2 Medical Decision Making Moderate Complexity Diagnoses GERD with esophagitis K21.00 Esophagitis bleeding: unspecified whether hemorrhage Vomiting R11.2 Nausea presence: with nausea Vomiting Intractability: non-intractable Vomiting type: unspecified Abdominal pain, epigastric R10.13 Depression F32.89 Depression Type: other depression Hx of migraines Z86.69 Chronic pain syndrome G89.4 DVT prophylaxis Z29.9 Type II diabetes mellitus E11.9 (1) GERD with esophagitis Esophagitis bleeding: unspecified whether hemorrhage Qualified Code(s): K21.00 - Gastro-esophageal reflux disease with esophagitis, without bleeding (2) Depression Depression Type: other depression Qualified Code(s): F32.89 - Other specified depressive episodes (3) Vomiting Nausea presence: with nausea Vomiting Intractability: non-intractable Vomiting type: unspecified Qualified Code(s): R11.2 - Nausea with vomiting, unspecified
--- NOTE | 2020-10-22 14:33 | Gastrointestinal Consultation ---
Date of Consultation October 22, 2020 Assessment & Plan (1) Epigastric abdominal pain: (2) Esophagitis: History of Present Illness Attending Physician: Socorro Early MD 45 yo female seen for complaint of constant severe chest and upper abdominal pain, also vomiting x 1 week. Denies dysphagia. Denies pyrosis. Seen by PCP recently, PPI begun s relief. In ER, LFT's + lipase WNL, VS unremarkable, Hgb stable, no evidence of hemoconcentration by labs, CT A/P without oral contrast showed lower esophageal thickening. H/o heavy NSAIDs - 2400 mg of ibuprofen daily, also recently started BC powder for this in addition. She denies regular narc use to me. Occ MJ. Frmr tobacco. Denies alcohol. ASSESSMENT/PLAN: Chest pain, esophageal wall thick on CT Heavy NSAID user - Suspect acid peptic disease aggravated by NSAID use, pill esophagitis also possible. Agree with BID PPI. Hold carafate in anticipation of EGD. Will plan in pt EGD. Diet as tolerated. Allergies Allergy/AdvReac Type Severity Reaction Status Date / Time Sulfa (Sulfonamide Allergy Intermediate Hives Verified 10/21/20 18:44 Antibiotics) promethazine Allergy Unknown Unknown Verified 10/21/20 18:44 Home Medications Medication Instructions Recorded Confirmed Type albuterol sulfate 2 puff INHALATION QID PRN 10/20/20 10/21/20 History albuterol sulfate 2.5 mg INHALATION DIRECTED PRN 10/20/20 10/21/20 History amitriptyline 50 mg PO HS 10/20/20 10/21/20 History betamethasone, augmented 1 applic TOPICAL BID PRN 10/20/20 10/21/20 History carisoprodol 350 mg PO TID PRN 10/20/20 10/21/20 History cetirizine [Zyrtec] 10 mg PO DAILY 10/20/20 10/21/20 History fluticasone furoate [Arnuity 1 inh INHALATION DAILY 10/20/20 10/21/20 History Ellipta] fluticasone propionate [Flonase] 2 spray INTRANASAL DAILY PRN 10/20/20 10/21/20 History gabapentin 600 mg PO TID 10/20/20 10/21/20 History lorazepam 1 mg PO Q8 PRN 10/20/20 10/21/20 History montelukast 10 mg PO HS 10/20/20 10/21/20 History omeprazole 40 mg PO DAILY 10/20/20 10/21/20 History ondansetron 4 mg PO Q6H PRN #20 tab 10/20/20 10/21/20 Rx oxycodone 10 mg PO QID PRN 10/20/20 10/21/20 History promethazine 25 mg PO Q6H PRN 10/20/20 10/21/20 History quetiapine [Seroquel] 200 mg PO HS 10/20/20 10/21/20 History ropinirole 1 mg PO HS 10/20/20 10/21/20 History trazodone 150 mg PO HS 10/20/20 10/21/20 History bpjmcmpatb-mcyenqkqnqrgd-lrqo 1 tab PO DAILY PRN 10/21/20 10/21/20 History Patient History Medical History Anxiety disorder, unspecified Chronic obstructive pulmonary disease, unspecified Chronic pain syndrome Depression Gastro-esophageal reflux disease without esophagitis Hx of migraines Family History (Updated 10/21/20 @ 21:26 by FIGUEROA De Luna) Other COPD (chronic obstructive pulmonary disease) Depression Diabetes Dyslipidemia Social History Smoking Status: Former smoker Tobacco Type: Cigarettes Smoking End Date: 2017; Hx Alcohol Use: No Hx Substance Use: No Preferred Language: Cypriot Communication Ability: Effective Beliefs That Will Affect Care: None Feels Safe at Home: Yes Safety Concerns: Feels Safe At This Time Assistive Devices: None Physical Exam Physical Exam: Appears comfortable, though anxious and crying. ENMT: OC clear, without thrush or leukoplakia. Mouth is mildly dry. Respiratory: normal respiratory effort, lungs clear to auscultation Cardiovascular: RRR, no murmur, no edema Gastrointestinal (Abdomen): Mild subxiphoid tenderness, otherwise unremarkable exam Results & Data ([facility]) Vital Signs (Past 12 Hours) Vital Signs Temp Pulse Resp BP Pulse Ox 10/22/20 07:30 36.6 C 58 L 18 100/67 98
[2020-10-22] MEDS: ENOXAPARIN INJ 40 MG/0.4 ML SYR SQ SCH (20:02)
[2020-10-22] MEDS: AMITRIPTYLINE HCL 50 MG TAB PO SCH (20:03)
[2020-10-22] MEDS: traZODone HCL 50 MG TAB PO SCH (20:03)
[2020-10-22] MEDS: QUEtiapine FUMARATE 200 MG TAB PO SCH (20:03)
[2020-10-22] MEDS: MONTELUKAST SODIUM 10 MG TABLET PO SCH (20:03)
[2020-10-22] MEDS: rOPINIRole HCL 1 MG TABLET PO SCH (20:04)
[2020-10-22] MEDS: PANTOprazole 40 MG TAB PO SCH (20:04)
--- NOTE | 2020-10-23 00:21 | Electrocardiogram Report ---
Test Reason : Blood Pressure : / mmHG Vent. Rate : 072 BPM Atrial Rate : 072 BPM P-R Int : 140 ms QRS Dur : 084 ms QT Int : 436 ms P-R-T Axes : 034 033 047 degrees QTc Int : 477 ms Normal sinus rhythm Low voltage QRS Cannot rule out Anterior infarct , age undetermined Abnormal ECG When compared with ECG of 20-OCT-2020 14:38, No significant change was found Confirmed by Eliel Hernández ([id number]) on 10/23/2020 12:20:39 AM Referred By: REFERRED SELF Confirmed By:Eliel Hernández
[2020-10-23] MEDS: oxyCODONE HCL IR 5 MG TAB (IMMEDIATE RELEASE) PO PRN ×2 (04:05→11:52)
[2020-10-23 07:57] LABS: Basophils # (auto) 0.02 K/uL (0-0.2); Basophils % (auto) 0.3 %; Eosinophils # (auto) 0.14 K/uL (0-0.5); Eosinophils % (auto) 2.3 %; Hematocrit (blood only) 37.5 % (37-47); Hemoglobin 12.2 g/dL (12.0-16.0); Immature Granulocytes # (auto) 0.02 K/uL (0.00-0.02); Immature Granulocytes % (auto) 0.3 %; Lymphocytes # (auto) 2.14 K/uL (1.2-3.4); Lymphocytes % (auto) 35.8 %; Mean Corpuscular Hemoglobin 30.1 pg (25-34); Mean Corpuscular Hgb Conc 32.5 g/dL (32-36); Mean Corpuscular Volume 92.6 fL (80-100); Mean Platelet Volume 10.3 fL (7.4-10.4); Monocytes # (auto) 0.39 K/uL (0.11-0.59); Monocytes % (auto) 6.5 %; Neutrophils # (auto) 3.27 K/uL (1.4-6.5); Neutrophils % (auto) 54.8 %; Platelet Count 238 K/uL (130-400); RDW Standard Deviation 44.4 fL (36.4-46.3); Red Blood Count 4.05 M/uL (4.2-5.4); White Blood Count 5.98 K/uL (4.8-10.8)
[2020-10-23] MEDS: FAMOTIDINE 20 MG in SYRINGE 3 ML IV SCH (08:02)
[2020-10-23] MEDS: GABAPENTIN 600 MG TAB PO SCH ×2 (08:03→14:08)
[2020-10-23] MEDS: FLUTICASONE FUROATE 100MCG 14 PUFFS/INHALER INH SCH (08:03)
[2020-10-23] MEDS: CETIRIZINE HCL 10 MG TABLET PO SCH (08:03)
[2020-10-23 08:28] LABS: BUN Creatinine Ratio 9.2 (10-20); Calcium 8.5 mg/dl (8.5-10.1); Creatinine Clr Calc Pharmacy 88.2 ml/min; Est GFR (African American) 103.3 ml/min; Est GFR (Non-African American) 89.1 ml/min; Magnesium 1.8 mg/dl (1.8-2.4); Potassium 3.6 mmol/L (3.5-5.1)
[2020-10-23] MEDS: PANTOprazole 40 MG TAB PO SCH (08:31)
--- NOTE | 2020-10-23 09:07 | History & Physical Bridge Note ---
Date of Service October 23, 2020 History & Physical Bridge Note I have examined the patient, reviewed the History & Physical and in the interval since the performance of the History & Physical I have noted the following changes of clinical significance: Patient with persistent epigastric and substernal chest pain. No vomiting. NPO post midnight except sips with am meds. PE: A&Ox3. Lungs CTA bilaterally. RRR without M/R/G. Abdomen soft, hyperactive bowel sounds. +tenderness epigastric region. A/P: Patient is a 45 y.o. female with a history of heavy NSAID use admitted with epigastric/chest pain and n/v. * NPO for now. * Proceed with EGD today with Dr. Hammond for further evaluation. * Continue Pantoprazole 40 mg and Famotidine 20 mg BID. * Further recommendations pending results of testing. Supervising Physician Co-Signing Physician Notes Agree with FIGUEROA Mcpherson as above Abd: Soft, Tender epigastric area, ND, +BS Continue current therapy Proceed with EGD now Further Recommendations to follow..
--- NOTE | 2020-10-23 09:42 | Anesthesiology Consultation ---
Date of Service October 23, 2020 Assessment & Plan Chart Review Chart Review: Acceptable Risk for Surgery Consults Requested none Proposed Anesthesia Risk / Benefits Reviewed With: PT / POA / Parent / Guardian, Accepts Plan and Informed Consent Obtained History Surgery Operation Date: 10/23/20 16:30 Proposed Procedures p Esophagogastroduodenoscopy Dr Hammond - Jerson Hammond, DO Height/Weight Height: 5 ft 4 in Weight: 76.7 kg Allergies Allergy/AdvReac Type Severity Reaction Status Date / Time Sulfa (Sulfonamide Allergy Intermediate Hives Verified 10/21/20 18:44 Antibiotics) promethazine Allergy Unknown Unknown Verified 10/21/20 18:44 Medications Home Medications Medication Instructions Recorded Confirmed Last Taken albuterol sulfate 2 puff INHALATION QID PRN 10/20/20 10/21/20 Unknown albuterol sulfate 2.5 mg INHALATION DIRECTED PRN 10/20/20 10/21/20 Unknown amitriptyline 50 mg PO HS 10/20/20 10/21/20 10/20/20 betamethasone, augmented 1 applic TOPICAL BID PRN 10/20/20 10/21/20 Unknown carisoprodol 350 mg PO TID PRN 10/20/20 10/21/20 Unknown cetirizine [Zyrtec] 10 mg PO DAILY 10/20/20 10/21/20 10/21/20 fluticasone furoate [Arnuity 1 inh INHALATION DAILY 10/20/20 10/21/20 10/21/20 Ellipta] fluticasone propionate [Flonase] 2 spray INTRANASAL DAILY PRN 10/20/20 10/21/20 Unknown gabapentin 600 mg PO TID 10/20/20 10/21/20 10/21/20 08:00 lorazepam 1 mg PO Q8 PRN 10/20/20 10/21/20 Unknown montelukast 10 mg PO HS 10/20/20 10/21/20 10/20/20 omeprazole 40 mg PO DAILY 10/20/20 10/21/20 10/21/20 ondansetron 4 mg PO Q6H PRN #20 tab 10/20/20 10/21/20 Unknown oxycodone 10 mg PO QID PRN 10/20/20 10/21/20 Unknown promethazine 25 mg PO Q6H PRN 10/20/20 10/21/20 Unknown quetiapine [Seroquel] 200 mg PO HS 10/20/20 10/21/20 10/20/20 ropinirole 1 mg PO HS 10/20/20 10/21/20 10/20/20 trazodone 150 mg PO HS 10/20/20 10/21/20 10/20/20 [id number]-[id number]-thwc 1 tab PO DAILY PRN 10/21/20 10/21/20 Unknown Active Medications Generic Name Dose Route Start Last Admin Trade Name Freq PRN Reason Stop Dose Admin Acetaminophen/Butalbital/Caffeine 1 tab 10/21/20 22:16 10/23/20 04:29 Butalbital/Acetamin/Caffeine Tab PO 11/20/20 22:15 1 tab DAILY PRN Administration Headache Amitriptyline HCl 50 mg 10/21/20 22:16 10/22/20 20:03 Amitriptyline Hcl 50 Mg Tab PO 11/20/20 22:15 50 mg HS KAYLA Administration Carisoprodol 350 mg 10/21/20 22:16 10/22/20 22:04 Carisoprodol 350 Mg Tablet PO 11/20/20 22:15 350 mg TID PRN Administration Muscle Pain Cetirizine HCl 10 mg 10/22/20 09:00 10/23/20 08:03 Cetirizine Hcl 10 Mg Tablet PO 11/21/20 08:59 10 mg DAILY KAYLA Administration Enoxaparin Sodium 40 mg 10/21/20 22:45 10/22/20 20:02 Enoxaparin Inj 40 Mg/0.4 Ml Syr SQ 11/20/20 22:44 40 mg HS KAYLA Administration Fluticasone Furoate 1 puffs 10/22/20 09:00 10/23/20 08:03 Fluticasone Furoate 100mcg 14 Puffs/Inhaler INH 11/21/20 08:59 1 puffs DAILY KAYLA Administration Gabapentin 600 mg 10/21/20 22:16 10/23/20 08:03 Gabapentin 600 Mg Tab PO 11/20/20 22:15 600 mg TID KAYLA Administration Famotidine 20 mg/ Syringe 5 mls @ 2.5 mls/min 10/22/20 09:00 10/23/20 08:02 IV 11/21/20 08:59 2.5 mls/min BID KAYLA Administration Sodium Chloride 1,000 mls @ 80 mls/hr 10/21/20 22:16 10/23/20 09:40 1/2 Nss IV 11/20/20 22:15 0 mls/hr .[id number] KAYLA Infusion Metoclopramide HCl 5 mg 10/21/20 22:16 10/22/20 11:47 Metoclopramide Hcl Inj 5 Mg/Ml 2 Ml Vial IV 11/20/20 22:15 5 mg Q8H PRN Administration Nausea And Vomiting Montelukast Sodium 10 mg 10/21/20 22:16 10/22/20 20:03 Montelukast Sodium 10 Mg Tablet PO 11/20/20 22:15 10 mg HS KAYLA Administration Ondansetron HCl 4 mg 10/21/20 22:16 10/22/20 17:52 Ondansetron Inj 2 Mg/Ml 2 Ml Vial IV 11/20/20 22:15 4 mg Q6H PRN Administration Nausea And Vomiting Oxycodone HCl 10 mg 10/22/20 11:42 10/23/20 04:05 Oxycodone Hcl Ir 5 Mg Tab (Immediate Release) PO 11/04/20 23:15 10 mg Q6 PRN Administration Severe Pain Pantoprazole Sodium 40 mg 10/22/20 21:00 10/23/20 08:31 Pantoprazole 40 Mg Tab PO 11/21/20 20:59 40 mg BID KAYLA Administration Quetiapine Fumarate 200 mg 10/21/20 22:16 10/22/20 20:03 Quetiapine Fumarate 200 Mg Tab PO 11/20/20 22:15 200 mg HS KAYLA Administration Ropinirole HCl 1 mg 10/21/20 22:16 10/22/20 20:04 Ropinirole Hcl 1 Mg Tablet PO 11/20/20 22:15 1 mg HS KAYLA Administration Trazodone HCl 150 mg 10/21/20 22:16 10/22/20 20:03 Trazodone Hcl 50 Mg Tab PO 11/20/20 22:15 150 mg HS KAYLA Administration NPO Date Last Intake of Fluids: 10/23/20 Time Last Intake of Fluids: 08:00 Last Intake of Fluids Comment: sip of water with pills Date Last Intake of Solids: 07/01/21 Time Last Intake of Solids: 18:00 Past Medical History Medical History Anxiety disorder, unspecified Chronic obstructive pulmonary disease, unspecified Chronic pain syndrome Depression Gastro-esophageal reflux disease without esophagitis Hx of migraines Past Family History Family History (Updated 10/21/20 @ 21:26 by FIGUEROA De Luna) Other COPD (chronic obstructive pulmonary disease) Depression Diabetes Dyslipidemia Social History Smoking Status: Former smoker Smoking End Date: 2017 Hx Alcohol Use: No Hx Substance Use: No Physical Exam Vital Signs Last Vital Signs Temp 36.6 C 10/23/20 09:26 Pulse 58 L 10/23/20 09:26 Resp 18 10/23/20 09:26 BP 147/73 H 10/23/20 09:26 Pulse Ox 99 10/23/20 09:26 Testing Laboratory Results 10/23/20 07:20 10/23/20 07:20 Urine Color Yellow 10/21/20 21:27 Urine Appearance Clear (Clear) 10/21/20 21:27 Urine pH 7.0 (4.5-7.5) 10/21/20 21:27 Ur Specific [place] 1.009 (1.000-1.030) 10/21/20 21:27 Urine Protein Negative (Negative) 10/21/20 21:27 Urine Glucose (UA) Negative (Negative) 10/21/20 21:27 Urine Ketones Negative (Negative) 10/21/20 21:27 Urine Nitrite Negative (Negative) 10/21/20 21:27 Ur Leukocyte Esterase Negative (Negative) 10/21/20 21:27
[2020-10-23] MEDS ORDERED: PROPOFOL IV EMULSION 10 MG/ML 20 ML VIAL IV ONE (10:08)
[2020-10-23] MEDS ORDERED: LIDOCAINE 2% 2 ML VIAL/AMP(20MG/ML) INFIL ONE (10:08)
--- NOTE | 2020-10-23 10:36 | Anesthesiology Progress Note ---
Date of Service October 23, 2020 Anesthesia Post Procedure Vital Signs Vital Signs: Temp Pulse Pulse Resp BP BP Pulse Ox 10/23/20 10:33 67 16 109/69 97 10/23/20 09:26 36.6 C 58 L 18 147/73 H 99 10/23/20 07:43 36.7 C 63 18 107/70 98 10/22/20 22:36 36.6 C 69 18 96/61 L 97 10/22/20 15:38 36.4 C L 73 18 105/66 97 Pain Intensity Upper Abdomen: Pain Intensity: 6 Transfer of Care Handoff Completed per policy Notes Mental Status: alert / awake / arousable and participated in evaluation Patient Amnestic to Procedure: Yes Nausea / Vomiting: adequately controlled Pain: adequately controlled Airway Patency, RR, SpO2: stable & adequate BP & HR: stable & adequate Hydration State: stable & adequate Anesthetic Complications: no major complications apparent
--- NOTE | 2020-10-23 10:43 | GI REPORT ---
Patient Name: Mirlande Camacho Procedure Date: 10/23/2020 9:28 AM Date of : 1975 Admit Type: Inpatient Age: 45 Gender: Female Attending MD: Jerson Hammond DO Procedure: Upper GI endoscopy Providers: Jerson Hammond DO Referring MD: Referred Self Indications: Epigastric abdominal pain Medicines: Monitored Anesthesia Care Complications: No immediate complications. Estimated Blood Loss: Estimated blood loss: none. Procedure: Pre-Anesthesia Assessment: - Prior to the procedure, a History and Physical was performed, and patient medications and allergies were reviewed. The patient's tolerance of previous anesthesia was also reviewed. The risks and benefits of the procedure and the sedation options and risks were discussed with the patient. All questions were answered, and informed consent was obtained. Prior Anticoagulants: The patient has taken Lovenox (enoxaparin), last dose was 1 day prior to procedure. ASA Grade Assessment: II - A patient with mild systemic disease. After reviewing the risks and benefits, the patient was deemed in satisfactory condition to undergo the procedure. After obtaining informed consent, the endoscope was passed under direct vision. Throughout the procedure, the patient's blood pressure, pulse, and oxygen saturations were monitored continuously. The Endoscope was introduced through the mouth, and advanced to the second part of duodenum. The upper GI endoscopy was accomplished without difficulty. The patient tolerated the procedure well. Findings: Mildly severe esophagitis with no bleeding was found 38 cm from the incisors. Localized mild inflammation characterized by erosions and erythema was found in the gastric antrum. Biopsies were taken with a cold forceps for histology. The examined duodenum was normal. Impression: - Mildly severe reflux esophagitis. - Gastritis. Biopsied. - Normal examined duodenum. Recommendation: - Resume previous diet. - Continue present medications. - Await pathology results. - Return to primary care physician as previously scheduled. Jerson Hammond DO 10/23/2020 10:43:34 AM This report has been signed electronically. Note Initiated On: 10/23/2020 9:28 AM Number of Addenda: 0 I attest to the content of the Intraoperative Record and orders documented therein, exceptions below {[id number]}
[2020-10-23] MEDS: SODIUM CHLORIDE 0.45 % 1,000 ML IV SCH (12:31)
[2020-10-23] MEDS: METOCLOPRAMIDE HCL INJ 5 MG/ML 2 ML VIAL IV PRN (12:31)
[2020-10-23] MEDS: CARISOPRODOL 350 MG TABLET PO PRN (14:08)
--- NOTE | 2020-10-23 16:18 | Discharge Summary ---
Date of Service October 23, 2020 Admission HPI Per Admitting Provider 45 YOF with past medical history of asthma, migraines, depression, GERD, anxiety, chronic pain. Patient comes in today after being seen in the EMD x2 nights for epigastric sharp, burning pain and bilious vomiting. Patient had a CT scan performed yesterday that revealed thickened esophagus was treated with PPI and follow up with GI for evaluation with a EGD. Patient went home yesterday had bbq chicken and vegetables for dinner and had return of her symptoms. She tried to eat a banana this morning that also she states that she threw up and continues with her pain. Recently she had her omeprazole increased to 40 mg daily. For her nausea in the EMD she was given Zofran, Benadryl, and Ativan. She states her vomiting has subsided but remains with burning chest discomfort and burping. Patient will be admitted for observation overnight and symptom management. Patient denies any recent illicit drug use. She appears Euvolemic on exam, vitals are stable, and her laboratory review is normal to include CBC, lipase, biliary labs, and electrolytes. She received 2L of isotonic crystalloid in the EMD. Will cover overnight with hypotonic saline. For her migraines her abortive medications usually work, however she states earlier this week she went to her PCP and was treated with Toradol and Phenergan. She states she had an issue with Phenergan when she was younger, but has had it since then without any side effects. Principal Diagnosis Esophagitis and gastritis Discharge Exam Constitutional WD/WN, vitals as above Eyes EOM intact bilaterally; no conjunctival abnormality ENMT external ear and nose normal, oropharynx normal Neck trachea midline, no thyromegaly normal visual inspection Respiratory normal respiratory effort, lungs clear to auscultation no respiratory distress Cardiovascular RRR, no murmur, no edema Gastrointestinal (Abdomen) Inspection/Auscultation: abdomen normal to inspection; abdomen not distended Musculoskeletal no cyanosis or clubbing, extremities motor strength 5/5 Skin no rashes, warm and dry Neurologic moves all extremities and awake Psychiatric Orientation: alert, oriented to person and cooperative Discharge Data Allergies Allergy/AdvReac Type Severity Reaction Status Date / Time Sulfa (Sulfonamide Allergy Intermediate Hives Verified 10/21/20 18:44 Antibiotics) promethazine Allergy Unknown Unknown Verified 10/21/20 18:44 Consultations 10/21/20 20:37 ED Decision to Admit Stat 10/22/20 08:46 Consult Gastroenterology Routine Procedures Performed Operation Date: 10/23/20 16:30 Actual Procedures p EGD Biopsy Cytology - Jerson Hammond, DO Hospital Course (1) GERD with esophagitis: As per CT scan above- Patient reports her GI appointment is at the end of November - EGD on 10/23 showed no ulcer, but did show gastritis and esophagitis. Increased omeprazole to PO BID. Will need to avoid NSAIDs for at least 1 month. Patient was willing to do this. - PCP follow-up (2) Vomiting: Resolved by discharge. Due to the the above. (3) Abdominal pain, epigastric: Cramping burning pain with GERD and frequent wretching. - CXR negative for free air or air outside esophagus/trachea - See above (4) Depression: Continue her outpatient medications (5) Hx of migraines: Continue abortive medications as needed (6) Chronic pain syndrome: Continue outpatient medications - Hold oxy - can give if needed - multimodal agents- Total Time Total Time Spent Total Time Spent (In Minutes): 50 Discharge Plan Discharge Items Patient Disposition: Home - Self-Care Reason For Visit: NAUSEA, ESOPHAGITIS Discharge Diagnosis: Esophagus and stomach irritation Condition on Discharge: Fair Activity: Resume your previous activity Non-emergency contact: Primary Care Provider Call non-emergency contact if: your symptoms worsen Follow-up/Referrals: Tariq Bañuelos D.O. [Primary Care Provider] - (Please call to schedule appointment with your doctor in 1 week) Diet: Regular Addtl Attending Provider Instructions: Ms. Camacho, You were admitted to the hospital with stomach pain. Dr. Hammond from the GI team did a scope of your stomach which showed irritation of your esophagus and stomach. This was likely due to the ibuprofen that you were taking for your pain. This medication is called an "NSAID" which can cause significant stomach irritation when taken at higher doses over a longer period of time. Fortunately, there were no ulcers or bleeding areas noted. This is great news as your stomach and esophagus have a big ability to heal quickly! However, we will send you home on your stomach acid erd medication twice a day to help reduce the acid levels in your stomach and help it heal. You should take this for 1 month, then return to once a day dosing. You will need to avoid all "NSAID" medications for at least a month to allow your body time to heal. These medications include Motrin (ibuprofen), Aleve (naproxen), Mobic (meloxicam), and any other in that family. Tylenol is safe for your stomach, but please take only up to 2 - 3 grams per day total, including in your Fiorcet headache medication and any other combination medications you take. Please speak with your PCP or Pain Management doctor on how to address your chronic pain given this family of medications is off limits for now. Pending Studies at Discharge: No Stand-Alone Forms: My [facility] [employer], Smoking Cessation Medications and DC Order Prescriptions: Continued carisoprodol 350 mg tablet 350 mg PO TID PRN (Reason: Muscle Pain) RF: 0 gabapentin 600 mg tablet 600 mg PO TID RF: 0 ropinirole 1 mg tablet 1 mg PO HS RF: 0 albuterol sulfate 2.5 mg /3 mL (0.083 %) Solution For Nebulization 2.5 mg INHALATION DIRECTED PRN (Reason: Shortness Of Breath Or Wheezing) RF: 0 cetirizine [Zyrtec] 10 mg Tablet 10 mg PO DAILY RF: 0 betamethasone, augmented 0.05 % cream 1 applic TOPICAL BID PRN (Reason: Pain) RF: 0 quetiapine [Seroquel] 200 mg tablet 200 mg PO HS RF: 0 amitriptyline 25 mg tablet 50 mg PO HS RF: 0 trazodone 150 mg tablet 150 mg PO HS RF: 0 montelukast 10 mg Tablet 10 mg PO HS RF: 0 lorazepam 1 mg tablet 1 mg PO Q8 PRN (Reason: Anxiety) RF: 0 albuterol sulfate 90 mcg/actuation Hfa Aerosol Inhaler 2 puff INHALATION QID PRN (Reason: Shortness Of Breath) RF: 0 fluticasone propionate 50 mcg/actuation [place],Suspension 2 spray INTRANASAL DAILY PRN (Reason: allergies) RF: 0 Arnuity Ellipta 100 mcg/actuation Blister With Device 1 inh INHALATION DAILY RF: 0 promethazine 25 mg Tablet 25 mg PO Q6H PRN (Reason: Nausea) RF: 0 oxycodone 10 mg tablet 10 mg PO QID PRN (Reason: Pain) RF: 0 ondansetron 4 mg tablet,disintegrating 4 mg PO Q6H PRN (Reason: nausea and vomiting) Qty: 20 RF: 0 kspxehtcrz-jwoaarizpjmlh-dgic 50-325-40 mg tablet 1 tab PO DAILY PRN (Reason: Headache) RF: 0 Changed omeprazole 40 mg capsule,delayed release(DR/EC) 40 mg PO BID Qty: 60 RF: 0 Discharge Orders: Discharge Order (Routine); Ordered 10/23/20 Ordered By: Camacho Vick Admission Data Admit Date/Time: 10/21/20 21:10 Attending Provider: Camacho Vick Admit Provider: Delvis Keane Primary Care Provider: Tairq Bañuelos Other Providers: Garth Gamez ; Ashley Meneses Other Interventions: Discharge Summary Assessment (RN) Last Done: 10/23/20 15:30 Coding Level of Care Code 51008 OBS Care - Discharge Diagnoses GERD with esophagitis K21.00 Esophagitis bleeding: unspecified whether hemorrhage Vomiting R11.2 Nausea presence: with nausea Vomiting Intractability: non-intractable Vomiting type: unspecified Abdominal pain, epigastric R10.13 Depression F32.89 Depression Type: other depression Hx of migraines Z86.69 Chronic pain syndrome G89.4
[2020-10-26 10:01] LABS: Amobarbital, Urine Conf NEGATIVE ng/mL (<100); Butalbital, Urine >8000 ng/mL (<100); Codeine Urine NEGATIVE ng/mL (<50); Hydrocodone Urine NEGATIVE ng/mL (<50); Hydromor Urine NEGATIVE ng/mL (<50); MDA negative; MDEA negative; MDMA (Ecstasy) Urine, Confirm negative; Morphine Urine 1730 ng/mL (<50); Norhydrocodone Conf Ur NEGATIVE ng/mL (<50); Noroxycodone Urine NEGATIVE ng/mL (<50); Oxycodone Urine NEGATIVE ng/mL (<50); Oxymorph Urine NEGATIVE ng/mL (<50); Pentobarbital, Urine Conf NEGATIVE ng/mL (<100); Phenobarbital, Urine NEGATIVE ng/mL (<100); Secobarbital, Urine Conf NEGATIVE ng/mL (<100)
== END 2020-10-23 15:50 | disposition home or self-care (01) ==
LOC: 2W 18:03 → ED 18:03 → SUATTDRO 21:10 → 2W 21:53